=== PATIENT | male | born 1955 | race Caucasian/White ===

== ENCOUNTER → 2017-02-19 | Outpatient (CLI) | payer OTHER ==
[~2017-02-19] MED LIST: B12 SHOT IM; DIPH1TAB25 PO; DIVA250T2 PO; SERT100T PO
[2017-02-19 08:30] LABS: BASOPHILS % (AUTO) 0 % (0-10); EOSINOPHILS # (AUTO) 0.2 10^3/uL (0.0-0.3); EOSINOPHILS % (AUTO) 1 % (0-10); LYMPHOCYTES # (AUTO) 1.5 X 10^3 (1.0-4.0); LYMPHOCYTES % (AUTO) 11 % (12-44); MEAN CORPUSCULAR HEMOGLOBIN 29 PG (25-34); MEAN CORPUSCULAR HGB CONC 33 G/DL (32-36); MEAN CORPUSCULAR VOLUME 88 FL (80-99); MEAN PLATELET VOLUME 10.7 FL (7.4-10.4); MONOCYTES # (AUTO) 1.1 X 10^3 (0.0-1.0); MONOCYTES % (AUTO) 8 % (0-12); NEUTROPHILS # (AUTO) 10.1 X 10^3 (1.8-7.8); NEUTROPHILS % (AUTO) 79 % (42-75); PLATELET COUNT 156 10^3/uL (130-400); RED BLOOD COUNT 4.91 10^6/uL (4.35-5.85); RED CELL DISTRIBUTION WIDTH 12.6 % (10.0-14.5); WHITE BLOOD COUNT 12.8 10^3/uL (4.3-11.0)
--- NOTE | 2017-02-19 08:42 | Diagnostic Imaging Report ---
PA and lateral chest at 833 hours. INDICATION: Cough. There are no prior studies available for comparison. FINDINGS: The heart size is within normal limits. There are coarse perihilar markings bilaterally but there is no evidence for failure, pneumonia or for pleural effusion. The mediastinum is not widened. The osseous structures are intact. IMPRESSION: 1. There is no evidence for an acute cardiopulmonary abnormality. 2. If previous studies are available, they would be helpful for comparison. If there are no previous studies available and further imaging is desired, then CT would recommended. 3. These results were called to CINDY Palm. Dictated by: Dictated on workstation # [id number]
== END ==
LOC: RAD 07:56
PROVIDERS: ATTEND Nurse Practitioner Family
DX: R05 Cough (principal); R06.02 Shortness of breath
CPT/HCPCS: 36415; 71020; 85025

== ENCOUNTER → 2017-08-14 | Outpatient (CLI) | payer OTHER ==
[~2017-08-14] MED LIST changes: -SERT100T PO; +SERT20OR PO
--- NOTE | 2017-08-14 08:57 | Diagnostic Imaging Report ---
INDICATION: Night sweats. TIME OF EXAM: 8:54 a.m. Correlation is made prior study from 02/19/2017. The heart size is normal. The pulmonary vascularity is unremarkable. The lungs are clear. No infiltrate, effusion or pneumothorax is detected. IMPRESSION: No acute cardiopulmonary process is detected. Dictated by: Dictated on workstation # [id number]
== END ==
LOC: RAD 08:24
PROVIDERS: ATTEND Internal Medicine
DX: R61 Generalized hyperhidrosis (principal)
CPT/HCPCS: 71046

== ENCOUNTER 2018-08-29 19:28 | Emergency (ER) | payer OTHER ==
[~2018-08-29] VITALS: Ht 190.5 cm; Wt 104.3 kg
[~2018-08-29 19:28] MED LIST changes: +SERT100T PO; -SERT20OR PO
--- NOTE | 2018-08-29 19:57 | ED Chest Pain ---
General Chief Complaint: Chest Pain Stated Complaint: COUGH, CHEST PAIN Source: patient, spouse Exam Limitations: no limitations History of Present Illness Date Seen by Provider: Aug 29, 2018 Time Seen by Provider: 19:36 Initial Comments Patient presents to ER by private conveyance with chief complaint that he is having pain sharp stabbing intermittent on coughing or deep inspiration in his left anterior ribs. He says been having some cough productive of clear sputum for the past week or so. He is not having any fevers or chills. Said he did for the last 2 weeks have several times a day woke up with a sweat but no chilling. No history of lung disease. He used to smoke about 3 packs per day. He quit 2004. No personal history of coronary disease, diabetes, hypertension, hypercholesterolemia, hypothyroidism. He says his family has all those things but no early onset coronary disease. Allergies and Home Medications Allergies Coded Allergies: No Known Drug Allergies (Verified , 08/28/15) Home Medications Divalproex Sodium 250 Mg Tablet.dr, 250 MG PO BID, (Reported) Sertraline HCl 100 Mg Tablet, 100 MG PO DAILY, (Reported) [B12 Shot] , 1,000 MCG IM UD, (Reported) Patient Home Medication List Home Medication List Reviewed: Yes Review of Systems Review of Systems Constitutional: No chills, No fever; malaise EENTM: No Blurred Vision, No Double Vision Respiratory: Cough; Denies Shortness of Air, Denies Wheezing Cardiovascular: Chest Pain, Edema; Denies Palpitations, Denies Syncope Gastrointestinal: Denies Abdominal Pain, Denies Constipated, Denies Diarrhea, Denies Nausea, Denies Poor Fluid Intake, Denies Vomiting Genitourinary: Denies Burning, Denies Discharge Musculoskeletal: No back pain, No joint pain Skin: No pruritus, No rash Psychiatric/Neurological: Denies Headache, Denies Numbness, Denies Paresthesia Past Izbdlny-Afeklh-Hxbmoz Hx Patient Social History Alcohol Use: Denies Use Recreational Drug Use: No Smoking Status: Never a Smoker Recent Foreign Travel: No Contact w/Someone Who Travel: No Physical Exam Vital Signs Vital Signs - First Documented 08/29/18 19:31 Pulse Ox 97 O2 Delivery Room Air Capillary Refill : Less Than 3 Seconds Height, Weight, BMI Height: 6'2.00" Weight: 215lbs. 0.0oz. 97.614068ca; 27.60 BMI Method:Stated General Appearance: WD/WN, Anxious HEENT: PERRL/EOMI, TMs Normal, Normal ENT Inspection, Pharynx Normal, Moist Mucous Membranes Neck: Full Range of Motion, Normal Inspection, Non Tender, Supple Respiratory: Lungs Clear, No Accessory Muscle Use, No Respiratory Distress, Decreased Breath Sounds, Other (left anterior lower chest wall tender to palpation) Cardiovascular: Regular Rate, Rhythm, No Gallop, Normal Peripheral Pulses, Other (bilateral lower extremities with mild edema) Gastrointestinal: Normal Bowel Sounds, No Organomegaly, Non Tender, Soft Neurologic/Psychiatric: Alert, Oriented x3, stave inspector II-XII Norm as Tested Skin: Normal Color, Warm/Dry Progress/Results/Core Measures Results/Orders Lab Results Laboratory Tests Test 08/29/18 19:53 Range/Units White Blood Count 6.6 4.3-11.0 10^3/uL Red Blood Count 4.80 4.35-5.85 10^6/uL Hemoglobin 14.0 13.3-17.7 G/DL Hematocrit 41 40-54 % Mean Corpuscular Volume 86 80-99 FL Mean Corpuscular Hemoglobin 29 25-34 PG Mean Corpuscular Hemoglobin Concent 34 32-36 G/DL Red Cell Distribution Width 13.4 10.0-14.5 % Platelet Count 160 130-400 10^3/uL Mean Platelet Volume 10.6 H 7.4-10.4 FL Neutrophils (%) (Auto) 49 42-75 % Lymphocytes (%) (Auto) 34 12-44 % Monocytes (%) (Auto) 13 H 0-12 % Eosinophils (%) (Auto) 4 0-10 % Basophils (%) (Auto) 1 0-10 % Neutrophils # (Auto) 3.2 1.8-7.8 X 10^3 Lymphocytes # (Auto) 2.3 1.0-4.0 X 10^3 Monocytes # (Auto) 0.9 0.0-1.0 X 10^3 Eosinophils # (Auto) 0.2 0.0-0.3 10^3/uL Basophils # (Auto) 0.0 0.0-0.1 10^3/uL Prothrombin Time 13.0 12.2-14.7 SEC INR Comment 1.0 0.8-1.4 Activated Partial Thromboplast Time 31 24-35 SEC Sodium Level 134 L 135-145 MMOL/L Potassium Level 4.1 3.6-5.0 MMOL/L Chloride Level 101 98-107 MMOL/L Carbon Dioxide Level 20 L 21-32 MMOL/L Anion Gap 13 5-14 MMOL/L Blood Urea Nitrogen 11 7-18 MG/DL Creatinine 0.85 0.60-1.30 MG/DL Estimat Glomerular Filtration Rate > 60 BUN/Creatinine Ratio 13 Glucose Level 150 H 70-105 MG/DL Calcium Level 9.7 8.5-10.1 MG/DL Corrected Calcium 9.5 8.5-10.1 MG/DL Magnesium Level 3.0 H 1.8-2.4 MG/DL Total Bilirubin 0.3 0.1-1.0 MG/DL Aspartate Amino Transf (AST/SGOT) 23 5-34 U/L Alanine Aminotransferase (ALT/SGPT) 19 0-55 U/L Alkaline Phosphatase 80 40-136 U/L Myoglobin 45.1 10.0-92.0 NG/ML Troponin I < 0.028 <0.028 NG/ML C-Reactive Protein High Sensitivity 0.24 0.00-0.50 MG/DL Total Protein 8.2 6.4-8.2 GM/DL Albumin 4.2 3.2-4.5 GM/DL My Orders Orders - BERNARD,TRUONG J Chest Pa/Lat (2 View) (08/29/18 19:47) Saline Lock/Iv-Start (08/29/18 19:47) Cbc With Automated Diff (08/29/18 19:47) Magnesium (08/29/18 19:47) Ekg Tracing (08/29/18 19:47) Cardiac Profile 1 (08/29/18 19:47) Comprehensive Metabolic Panel (08/29/18 19:47) Myoglobin Serum (08/29/18 19:47) Protime With Inr (08/29/18 19:47) Partial Thromboplastin Time (08/29/18 19:47) O2 (08/29/18 19:47) Monitor-Rhythm Ecg Trace Only (08/29/18 19:47) Lipid Panel (08/30/18 06:00) Aspirin Chewable Tablet (Baby Aspirin Ch (08/29/18 20:00) Saline Lock/Iv-Start (08/29/18 19:47) Hs C Reactive Protein (08/29/18 19:47) Sputum Culture (08/29/18 19:57) Albuterol/Ipra Inhalation Soln (Duoneb I (08/29/18 20:30) Svn Small Volume Nebulizer (08/29/18 20:18) Ketorolac Injection (Toradol Injection) (08/29/18 20:45) Fentanyl Injection (Sublimaze Injection (08/29/18 22:00) Incentive Spirometry Initial (08/29/18 21:59) Medications Given in ED Current Medications Medications Dose Ordered Sig/Edith Route Start Time Stop Time Status Last Admin Dose Admin Albuterol/ Ipratropium 3 ml ONCE ONCE INH 08/29/18 20:30 08/29/18 20:31 DC 08/29/18 20:23 3 ML Aspirin 324 mg ONCE ONCE PO 08/29/18 20:00 08/29/18 20:01 DC 08/29/18 20:17 324 MG Ketorolac Tromethamine 30 mg ONCE ONCE IVP 08/29/18 20:45 08/29/18 20:46 DC 08/29/18 20:57 30 MG Vital Signs/I&O 08/29/18 08/29/18 08/29/18 08/29/18 19:31 19:48 19:48 20:24 Temp 98.4 Pulse 80 Resp 14 B/P (MAP) 163/91 (115) Pulse Ox 97 98 98 O2 Delivery Room Air Room Air Room Air Room Air Progress Progress Note #1: Time: 19:55 Progress Note Sounds like pleuritic chest pain. We will give him some aspirin. Regular W view chest x-ray and some labs looking for pneumonia. ED ACS 6 points, low risk. If the patient also has: (1) EKG without new ischemic changes and (2) negative initial and 2-hour troponins, then this patient is safe for discharge to early outpatient follow-up investigation (or proceed to earlier inpatient testing). If EKG with ischemic changes or positive troponin, they are not low risk and require normal risk stratification. Progress Note #2: Time: 22:03 Progress Note We attempt to get his pain under better control before sending him out with his pleurisy. The Toradol really didn't help much. Really give him some fentanyl and sending home with some hydrocodone tablets. Initial ECG Impression Date: Aug 29, 2018 Initial ECG Impression Time: 19:31 Initial ECG Rate: 79 Initial ECG Rhythm: Normal Sinus Initial ECG Intervals: Normal Initial ECG Impression: Normal, Nonspecific Changes Comment No significant ST elevation or depression. Diagnostic Imaging Diagonstic Imaging: Xray Plain Films/CT/US/NM/MRI: chest (2v) Comments [facility], [place] NAME: NORY GARCIA [facility] REC#: [id number] PT STATUS: REG ER : 1955 PHYSICIAN: TRUONG WAGNER MD ADMIT DATE: 08/29/18/ER Draft Date of Exam:08/29/18 CHEST PA/LAT (2 VIEW) INDICATION: Cough of one-month duration, complaining of shortness of air and left-sided chest pain. EXAMINATION: Two views of the chest were obtained. FINDINGS: No chest wall bony deformity or fracture evident. When compared to the study of 08/14/2017, no interval change is seen. There is no failure pattern, effusion or pneumothorax and there is no free air beneath the diaphragms. Heart size and vascularity are within normal limits. IMPRESSION: Stable chest, no acute appearing abnormality. Dictated on workstation # [id number] Dict: 08/29/182017 Trans: 08/29/182025 PJE [id number] Interpreted by: BROOKS KELLY Electronically signed by: Reviewed: Reviewed by Me Departure Impression Primary Impression: Pleurisy Disposition: 01 HOME, SELF-CARE Condition: Stable Departure-Patient Inst. Decision time for Depature: 22:04 Referrals: FREEMAN SHEPPARD DO (PCP/Family) Primary Care Physician Patient Instructions: Pleuritic Chest Pain (DC) Add. Discharge Instructions: Use ibuprofen 800 mg 3 times a day or Naprosyn 2 capsules twice a day scheduled for the next week or 2 to help reduce the inflammation and pain in your chest wall. In addition to this for pain relief you can use Tylenol and hydrocodone one to 2 tablets every 6 hours as needed to control your pain. If it's not improving over the next week follow up with Dr. Sheppard to discuss other options for your symptoms management and workup. Use the incentive spirometer several times a day to help prevent developing a pneumonia. Her symptoms get worse or you start developing high fevers, grossly productive cough or other worrisome symptoms you can follow-up with primary care or return to the ER for further management. All discharge instructions reviewed with patient and/or family. Voiced understanding. Scripts Hydrocodone Bit/Acetaminophen (Hydrocodone/Acetaminophen 5/325mg Tablet) 1 Tab Tab 1-2 EACH PO Q6H PRN for BREAKTHROUGH PAIN MDD 10, #20 TAB 0 Refills Prov: TRUONG WAGNER 08/29/18 TRUONG WAGNER Aug 29, 2018 19:57
[2018-08-29 20:00] LABS: BASOPHILS % (AUTO) 1 % (0-10); EOSINOPHILS # (AUTO) 0.2 10^3/uL (0.0-0.3); EOSINOPHILS % (AUTO) 4 % (0-10); HEMATOCRIT 41 % (40-54); LYMPHOCYTES # (AUTO) 2.3 X 10^3 (1.0-4.0); LYMPHOCYTES % (AUTO) 34 % (12-44); MEAN CORPUSCULAR HEMOGLOBIN 29 PG (25-34); MEAN CORPUSCULAR HGB CONC 34 G/DL (32-36); MEAN CORPUSCULAR VOLUME 86 FL (80-99); MEAN PLATELET VOLUME 10.6 FL (7.4-10.4); MONOCYTES # (AUTO) 0.9 X 10^3 (0.0-1.0); MONOCYTES % (AUTO) 13 % (0-12); NEUTROPHILS # (AUTO) 3.2 X 10^3 (1.8-7.8); NEUTROPHILS % (AUTO) 49 % (42-75); PLATELET COUNT 160 10^3/uL (130-400); RED CELL DISTRIBUTION WIDTH 13.4 % (10.0-14.5); WHITE BLOOD COUNT 6.6 10^3/uL (4.3-11.0)
[2018-08-29] MEDS ORDERED: ASPIRIN 81 MG CHEW (CHILDREN'S ASA) PO ONE (20:00)
[2018-08-29 20:18] LABS: ALANINE AMINOTRANSFERASE 19 U/L (0-55); ALBUMIN 4.2 GM/DL (3.2-4.5); ALKALINE PHOSPHATASE 80 U/L (40-136); BILIRUBIN,TOTAL 0.3 MG/DL (0.1-1.0); BUN/CREATININE RATIO 13; CALCIUM 9.7 MG/DL (8.5-10.1); CARBON DIOXIDE 20 MMOL/L (21-32); CHLORIDE 101 MMOL/L (98-107); CREATININE SERUM 0.85 MG/DL (0.60-1.30); GFR ESTIMATED > 60; GLUCOSE 150 MG/DL (70-105); POTASSIUM 4.1 MMOL/L (3.6-5.0); SODIUM 134 MMOL/L (135-145); TOTAL PROTEIN 8.2 GM/DL (6.4-8.2)
[2018-08-29 20:25] LABS: MYOGLOBIN SERUM 45.1 NG/ML (10.0-92.0)
--- NOTE | 2018-08-29 20:26 | Diagnostic Imaging Report ---
INDICATION: Cough of one-month duration, complaining of shortness of air and left-sided chest pain. EXAMINATION: Two views of the chest were obtained. FINDINGS: No chest wall bony deformity or fracture evident. When compared to the study of 08/14/2017, no interval change is seen. There is no failure pattern, effusion or pneumothorax and there is no free air beneath the diaphragms. Heart size and vascularity are within normal limits. IMPRESSION: Stable chest, no acute appearing abnormality. Dictated by: Dictated on workstation # [id number]
[2018-08-29] MEDS ORDERED: RT-ALBUTEROL/IPRATROPIUM 3 ML (DUONEB) VIAL INH ONE (20:30)
[2018-08-29] MEDS ORDERED: KETOROLAC 30 MG/ML VIAL IVP ONE (20:45)
[2018-08-29] MEDS ORDERED: fentaNYL INJECTION 100 MCG/2 ML AMP IVP ONE (22:00)
[2018-08-29] MEDS ORDERED: ACHD5005 PO (22:07)
[2018-08-29] MEDS ORDERED: RX-HYDROCODONE/APAP 5/325 MG #4 TAB PK PO PRN (22:15)
[2018-08-29 22:36] VITALS: BP 137/90
== END 2018-08-29 22:37 | disposition home or self-care (01) ==
LOC: EDUNIT# 19:28 → ER 19:29
DX: R09.1 Pleurisy (principal); Z87.891 Personal history of nicotine dependence
CPT/HCPCS: 36415; 71046; 80053; 83735; 83874; 84484; 85025; 85610; 85730; 86141; 87070; 87205; 93005; 93041; 94640; 94664

== ENCOUNTER → 2021-04-20 | Outpatient (CLI) | payer BC, OTHER ==
[~2021-04-20] MED LIST changes: +ACHD5005 PO
--- NOTE | 2021-04-20 13:03 | Diagnostic Imaging Report ---
INDICATION: Lumbago extending into the left leg. TIME OF EXAM: 11:42 a.m. FINDINGS: Five views of the lumbar spine were obtained. Curvature and alignment of the lumbar spine are normal. Vertebral body heights are well maintained. No acute compression fracture is seen. There is multilevel spondylosis with variable disc space narrowing and marginal spurring. No definite spondylolysis or spondylolisthesis is identified. The abdominal aorta is heavily calcified. IMPRESSION: Lumbar spondylosis. No acute bony abnormality is detected. Dictated by: Dictated on workstation # [id number]
== END ==
LOC: RAD 11:08
PROVIDERS: ATTEND Internal Medicine
DX: M47.816 Spondylosis without myelopathy or radiculopathy, lumbar region (principal)
CPT/HCPCS: 72110

== ENCOUNTER 2021-12-17 05:28 | Outpatient (CLI) | payer BC, OTHER ==
[~2021-12-17] VITALS: Ht 188 cm; Wt 100.5 kg
== END 2021-12-17 13:16 | disposition home or self-care (01) ==
LOC: PREOP 05:28
PROVIDERS: ATTEND Surgery
DX: Z01.818 Encounter for other preprocedural examination (principal)

== ENCOUNTER 2021-12-20 07:47 | Day surgery (SDC) | payer BC, OTHER ==
--- NOTE | 2021-12-14 18:18 | HISTORY AND PHYSICAL ---
DATE OF SERVICE: PROCEDURE DATE: 12/20/2021. ATTENDING PRIMARY CARE PHYSICIAN: Dr. Myles Sheppard. HISTORY OF PRESENT ILLNESS: The patient is a 66-year-old male who is known to us. He has been seen in the past for several skin lesions. He reports today with a lesion of the left wrist, which she reports has been there for several months and has become larger in size and started to become painful at times, especially when he works or moves his wrist in a certain position. He denies any drainage. He does report that he does have a history of ganglion cyst in the past and has had one on each wrist before and had these removed. PAST MEDICAL HISTORY: Depression, vitamin B12 deficiency. PAST SURGICAL HISTORY: Vasectomy, bilateral ganglion cystectomy, back surgery 07/2021. ALLERGIES: No known drug allergies. MEDICATIONS: Vitamin B12, Zoloft 100 mg daily, Depakote 250 mg daily. SOCIAL HISTORY: Previous for tobacco smoke, 4-pack years, quit in 2019. Negative for alcohol. FAMILY HISTORY: Mother, diabetes, hypertension, myocardial infarction. Maternal grandfather, diabetes, hypertension, myocardial infarction. Maternal grandmother, hypertension. Brother and sister, diabetes, hypertension. VITAL SIGNS: Stable. Current weight is 221 pounds at 6 feet 2 inches. REVIEW OF SYSTEMS: Well-nourished male in no acute distress. He is not experiencing any shortness of breath or difficulty breathing. No chest pain, palpitations or diaphoresis. No nausea, vomiting or abdominal pain. No diarrhea or constipation. No red blood per rectum. No dark tarry stools. No fever or chills. No recent inadvertent weight loss. All other review of systems negative. PHYSICAL EXAMINATION: CHEST: Clear. Good breath sounds bilaterally. HEART: Regular, no murmurs. EXTREMITIES: No lower extremity edema. There is a small raised lesion of the left wrist on ventral side that is approximately 1 to 1.5 cm in size. This is just proximal to the palm along the radial side. This is tender to palpation with no drainage noted. This is consistent with a ganglion cyst. HEENT: No scleral icterus. NECK: No cervical lymphadenopathy. ABDOMEN: Soft, nontender, nondistended. SKIN: Warm, dry and pink. NEUROLOGIC: Awake, alert and oriented x3. ASSESSMENT AND PLAN: A 66-year-old male with a symptomatic left wrist ganglion cyst. At this time, we will proceed with scheduling him for excision of left wrist ganglion cyst in the operating room. Job ID: [id number] DocumentID: [id number] Dictated Date: 12/14/2021 08:43:04 Fluorescent Solution Mixer Date: 12/14/2021 09:21:57 Dictated By: WILTON BALLESTEROS
[2021-12-20] VITALS (9 sets, daily range): BP systolic 117–139; BP diastolic 69–80
[~2021-12-20] VITALS: Ht 188 cm; Wt 100.5 kg
[2021-12-20] MEDS ORDERED: fentaNYL INJ 100 MCG/2 ML AMP ONE (08:08)
[2021-12-20] MEDS ORDERED: proPOfol 200 MG/20 ML (DIPRIVAN) VIAL IV ONE (08:08)
[2021-12-20] MEDS ORDERED: ONDANSETRON 4 MG/2 ML (SDV) Z0FRAN ONE (08:08)
[2021-12-20] MEDS ORDERED: LIDOCAINE PF 2% 5 ML (XYLOCAINE) VIAL ONE (08:08)
[2021-12-20] MEDS ORDERED: ceFAZolin 2 GM IV Premixed 50 ML ONE (08:14)
[2021-12-20] MEDS: LACTATED RINGERS 1,000 ML IV PRN ×2 (08:20→11:07)
[2021-12-20] MEDS ORDERED: ONDANSETRON 4 MG/2 ML (SDV) Z0FRAN IVP PRN ×2 (08:45→09:30)
[2021-12-20] MEDS ORDERED: morphine INJ 10 MG/ML 1ML (SYR OR VIAL) IVP ONE (08:45)
[2021-12-20] MEDS ORDERED: ceFAZolin 2 GM IV Premixed 50 ML IV ONE (08:45)
--- NOTE | 2021-12-20 09:29 | Progress Note-Pre Operative ---
Pre-Operative Progress Note H&P Reviewed The H&P was reviewed, patient examined and no changes noted. Date Seen by Provider: Dec 20, 2021 Time Seen by Provider: 09:25 Date H&P Reviewed: Dec 20, 2021 Time H&P Reviewed: 09:20 Pre-Operative Diagnosis: Symptomtic left wrist ganglion cyst CHRISTIANO HANNON APRN Dec 20, 2021 09:29
[2021-12-20] MEDS ORDERED: morphine INJ 10 MG/ML 1ML (SYR OR VIAL) IVP PRN (09:30)
[2021-12-20] MEDS ORDERED: HYDROcodone/APAP 5 MG/325 MG (LORTAB) TAB PO ONE (09:30)
[2021-12-20] MEDS ORDERED: ACETAMINOPHEN 325 MG TABLET PO PRN (09:30)
[2021-12-20] MEDS ORDERED: HYDR-3817 PO (09:31)
--- NOTE | 2021-12-20 09:31 | Discharge Inst-Surgical ---
D/C Lap Instructions-KIDO Reconcile Patient Problems Problems Reviewed?: Yes New, Converted, or Re-Newed RX: RX on Chart Follow Up Appt in 2 weeks Activity as tolerated No driving for 24 hours No driving while on pain medications Incentive Spirometry use every 2 hours while awake Regular Diet Symptoms to Report: Fever over 101 degree F, Nausea/Vomiting Infection Signs and Symptoms to report: Increased redness, Foul odor of wound, Increased drainage Bathing instructions: May shower Operative Area Clean/Dry; Keep incision clean/dry If any problems/questions: Contact your physician or go to Emergency Room CHRISTIANO HANNNO APRN Dec 20, 2021 09:31
[2021-12-20] MEDS ORDERED: LIDOCAINE/EPI 2% 1:200,00 (XYLOCAINE) 20 ML VIAL ONE (09:41)
--- NOTE | 2021-12-20 11:35 | Progress Note-Post Operative ---
Post-Operative Progess Note Surgeon (s)/Offshore Diver (s) Surgeon NAVNEET SMITH MD Offshore Diver: minnie darby MACARONI MAKER Pre-Operative Diagnosis Symptomtic left wrist ganglion cyst Post-Operative Diagnosis same Procedure & Operative Findings Date of Procedure 12/20/21 Procedure Performed/Findings excision gangion cyst. Anesthesia Type general LMA Estimated Blood Loss Estimated blood loss (mL): minimal Specimens/Packing Specimens Removed ganglion cyst NAVNEET SMITH MD Dec 20, 2021 11:35
[2021-12-20] MEDS ORDERED: SEVOFLURANE (ULTANE) 15 ML INHAL SOLN ONE (11:41)
--- NOTE | 2021-12-20 14:00 | Anesthesia-General Post-Op ---
General Patient Condition Mental Status/LOC: Same as Preop Cardiovascular: Satisfactory Nausea/Vomiting: Absent Respiratory: Satisfactory Pain: Controlled Complications: Absent Post Op Complications Complications None Follow Up Care/Instructions Patient Instructions None needed. Anesthesia/Patient Condition Patient Condition Patient was seen after the procedure and he was doing well, no complaints, stable vital signs, no apparent adverse anesthesia problems. No complications reported per nursing. CHAR GARCIA DO Dec 20, 2021 14:00
--- NOTE | 2021-12-20 15:18 | OPERATIVE REPORT ---
DATE OF SERVICE: 12/20/2021 ATTENDING PRIMARY CARE PHYSICIAN: Dr. Myles Sheppard. PREOPERATIVE DIAGNOSIS: Symptomatic left volar surface wrist ganglion cyst. POSTOPERATIVE DIAGNOSIS: Symptomatic left volar surface wrist ganglion cyst. PROCEDURE PERFORMED: Excision of symptomatic ganglion cyst. SURGEON: Navneet Smith MD QUALITY CONTROL SYSTEMS MANAGER: Randall Santos APRN. ANESTHESIA: General laryngeal mask airway with local. ESTIMATED BLOOD LOSS: Minimal. FINDINGS: Benign appearing ganglion cyst approximately 1 cm in size. DISPOSITION: The patient tolerated the procedure well. INDICATIONS FOR PROCEDURE: The patient is a 66-year-old male known to us. He reports that he has had two ganglion cysts of the right wrist in the past, which had grown larger in size and become significantly painful, which did affect his work. He states that he has developed another one along the flexor surface of the left wrist overlying the radial bone for the past several months, which does increase in size over time and then at times it would recede. He again states that this does become significantly painful and does affect his work. DESCRIPTION OF PROCEDURE: The patient was brought to the operating room and laid supine on the table. After adequate IV pain and sedative medications and general laryngeal mask airway intubation, a tourniquet was placed and the left upper extremity was prepped and draped in standard surgical fashion. A tourniquet was then insufflated to 250 mmHg pressure and the skin was anesthetized using 1% marcaine with epinephrine. A transverse skin incision along the glabellar lines was then made using a 15 blade. The subcutaneous tissue was then dissected using electrocautery. The cyst was identified and completely dissected out using tenotomy scissors. The radial artery and vein were identified and spared throughout the process as was the radial nerve. The cyst was then dissected to the base with visualization of good hemostasis. The cyst was then suture ligated at the base using a 0 chromic loop suture and the cyst excised using tenotomy scissors with visualization of good hemostasis. The subcutaneous tissue was then reapproximated using 3-0 Vicryl interrupted suture. Skin was closed using 4-0 Monocryl running subcuticular suture. Wound was then cleaned and covered with Dermabond. The patient tolerated the procedure well. We will start IV normal pain medication as well as a clear liquid diet. Once he is tolerating clears, has good pain control with oral pain medications, and ambulating well, we will discharge him home. He will be instructed to keep the area clean and dry and to do no heavy lifting or exertion for the next two weeks and to also use the wrist splint for the next two weeks as well. Job ID: [id number] DocumentID: [id number] Dictated Date: 12/20/2021 11:46:09 Structural Engineering Drafting Officer Date: 12/20/2021 15:18:08 Dictated By: NAVNEET SMITH MD MTDD
== END 2021-12-20 13:00 | disposition home or self-care (01) ==
LOC: SDC 07:47
PROVIDERS: ATTEND Surgery
DX: M67.432 Ganglion, left wrist (principal)
CPT/HCPCS: 87081